=== PATIENT | male | born 1950 | race Caucasian/White ===

== ENCOUNTER 2020-03-05 12:04 | Emergency (ER) | payer OTHER, MEDICAID ==
[~2020-03-05] VITALS: Ht 170.2 cm; Wt 50.8 kg
[2020-03-05 12:04] VITALS: BP 120/79
--- NOTE | 2020-03-05 12:05 | NUR ---
PT BIBA AND TAKEN TO BED 4, PT CHANGED INTO GOWN AND ROOM STRIPPED, PT GAVE URINE SAMPLE PLACED BY BED SIDE CART, PT IN SF POSTION RAILS UP X2
--- NOTE | 2020-03-05 12:30 | NUR ---
69 YEAR OLD MALE BIBA FROM [facility] FOR SAYING HE HAS SUICIDAL IDEATION. PER FACILITY PT HAS NOT EATEN IN 3 DAYS, AND STATES HE SAYS LIFE IS NOT WORTH LIVING. PT STATES HE HAS SUICIDAL IDEATION BECAUSE HE HAS BEEN FEELING LONELY, IS UNSURE WHAT PLAN IS. PT ALERT AND AWAKE, BREATHING EVEN AND UNLABORED, SKIN WARM AND DRY. BED IN LOWEST POSITION, LOCKED, BED RAIL UPX1. PT PLACED INTO ROOM WITH SI PRECAUTIONS, SITTER REMAINS AT BEDSIDE OF PT. PMH - ANXIETY, DEPRESSION, [place] ALLERGIES - NKA
[2020-03-05 12:44] LABS: BASOPHILS # (AUTO) 0.1 K/uL (0.00-0.22); BASOPHILS % (AUTO) 0.7 % (0.0-2.0); EOSINOPHILS # (AUTO) 0.1 K/uL (0-0.4); EOSINOPHILS % (AUTO) 1.4 % (0.0-4.0); HEMATOCRIT 41.3 % (36-52); HEMOGLOBIN 13.8 g/dL (12.0-18.0); LYMPHOCYTES # (AUTO) 1.2 K/uL (2.0-11.5); LYMPHOCYTES % (AUTO) 16.1 % (20.5-51.1); MEAN CORPUSCULAR HEMOGLOBIN 30 pg (27-31); MEAN CORPUSCULAR HGB CONC 33 g/dL (33-37); MEAN CORPUSCULAR VOLUME 89.3 fL (80-94); MONOCYTES # (AUTO) 0.5 K/uL (0.8-1.0); MONOCYTES % (AUTO) 6.1 % (1.7-9.3); NEUTROPHILS # (AUTO) 5.7 K/uL (1.8-7.7); NEUTROPHILS % (AUTO) 75.7 % (42.2-75.2); PLATELET COUNT (AUTO) 205 K/uL (140-450); RED BLOOD CELL COUNT(AUTO) 4.62 MIL/uL (4.20-6.10); RED CELL DISTRIBUTION WIDTH 13.1 % (11.6-13.7); WHITE BLOOD COUNT (AUTO) 7.6 K/uL (4.8-10.8)
--- NOTE | 2020-03-05 12:52 | NUR ---
DR FITZPATRICK AT BED SIDE WITH PT AT BED 4
[2020-03-05 13:00] LABS: ALBUMIN 3.8 g/dL (3.4-5.0); ANION GAP 11.5 (8-16); ASPARTATE AMINOTRANSFERASE 29 U/L (15-37); CARBON DIOXIDE 28.5 mmol/L (21-32); CHLORIDE 107 mmol/L (98-107); CREATININE 0.9 mg/dL (0.6-1.3); GFR ARICAN-AMERICAN 108 mL/min (>90); GLUCOSE 104 mg/dL (74-106); SODIUM SERUM 143 mmol/L (136-145); TOTAL BILIRUBIN 0.4 mg/dL (0.0-1.0); UREA NITROGEN, BLOOD 17 mg/dL (7-18)
[2020-03-05 13:01] LABS: ACETAMINOPHEN < 0.5 ug/ml (10-30); SALICYLATE < 2.8 mg/dL (2.8-20.0)
[2020-03-05 13:05] LABS: APPEARANCE,URINE CLEAR (CLEAR); BILIRUBIN,URINE NEGATIVE (NEGATIVE); BLOOD, URINE TRACE-I (NEGATIVE); COLOR,URINE YELLOW (YELLOW); LEUKOCYTE ESTERASE ,URINE NEGATIVE (NEGATIVE); NITRITE, URINE NEGATIVE (NEGATIVE); UGLUCOSE NEGATIVE (NEGATIVE)
[2020-03-05 13:12] LABS: RBC,URINE 0-5 /HPF (0-5); WBC,URINE 0-5 /HPF (0-5)
--- NOTE | 2020-03-05 14:02 | NUR ---
SPOKE TO DIOR GONZALEZ PT'S NIECE AND POA. UPDATE WAS GIVEN AND ASKED ER DOCTOR TO CALL [facility] PER HER REQUEST AND REQUESTING TO SPEAK WITH PSYCHIATRIST.
[2020-03-05] MEDS ORDERED: clonazePAM 0.5 MG TAB PO ONE (14:05)
--- NOTE | 2020-03-05 14:34 | NUR ---
PT RESTING WITH EYES CLOSED, BREATHING EVEN AND UNLABORED. NO DISTRESS NOTED. SITTER REMAINS AT BEDSIDE, WILL CONTINUE TO MONITOR.
[2020-03-05 14:41] LABS: BARBITURATE, URINE NEGATIVE ng/ml (NEG <=200); BENZODIAZEPINE, URINE NEGATIVE ng/mL (NEG <=200); CANNABINOID, URINE NEGATIVE ng/mL (NEG <=50); COCAINE, URINE NEGATIVE ng/mL (NEG <=300); OPIATE, URINE NEGATIVE ng/mL (NEG <=2000); PHENCYCLIDINE SCREEN,URINE NEGATIVE ng/mL (NEG <=25)
--- NOTE | 2020-03-05 18:51 | NUR ---
PT ALERT AND AWAKE, BREATHING EVEN AND UNLABORED. NO DISTRESS NOTED. SITTER REMAINS AT BEDSIDE, WILL CONTINUE TO MONITOR. PT WITH DINNER TRAY AT BEDSIDE, DOES NOT WANT TO EAT
--- NOTE | 2020-03-05 19:19 | NUR ---
RECEIVED REPORT FROM VIKRAM VIVAR. TRANSFER OF CARE AT THIS TIME.
--- NOTE | 2020-03-05 20:41 | NUR ---
PT AMBULATED TO WITH STEADY GAIT AND BACK TO BED. ALL PT NEEDS MET AT THIS TIME.
--- NOTE | 2020-03-05 21:50 | NUR ---
PT AMBULATED TO WITH STEADY GAIT AND BACK TO BED. ALL PT NEEDS MET AT THIS TIME.
--- NOTE | 2020-03-05 23:50 | NUR ---
PT IN BED, IN STABLE CONDITION. EQUAL RISE AND FALL OF CHEST WALL. ALL PT NEEDS MET AT THIS TIME.
--- NOTE | 2020-03-06 00:15 | NUR ---
Tello bynum in EDM - 03/06/20 at 0342 by [facility] PT STATED HE FEELS A LITTLE BETTER AFTER ATIVAN WAS GIVEN IM. PT IN BED LOCKED IN LOWEST POSITION, SIDE RAILS X1.
--- NOTE | 2020-03-06 00:25 | NUR ---
PT STATED HE FEELS RESTLESS. ERMD MADE AWARE.
[2020-03-06] MEDS ORDERED: LORazepam 2 MG/ML VIAL IM ONE (00:30)
--- NOTE | 2020-03-06 00:45 | NUR ---
PT STATED HE FEELS A LITTLE BETTER AFTER ATIVAN WAS GIVEN IM. PT IN BED LOCKED IN LOWEST POSITION, SIDE RAILS X1.
--- NOTE | 2020-03-06 02:49 | NUR ---
PT AMBULATED TO WITH STEADY GAIT AND BACK TO BED. ALL PT'S NEEDS MET AT THIS TIME. BED LOCKED IN LOWEST POSITION, SIDE RAILS X1.
--- NOTE | 2020-03-06 05:42 | NUR ---
PT IN STABLE CONDITION. EQUAL RISE AND FALL OF CHEST WALL. BED LOCKED IN LOWEST POSITION, SIDE RAILS X2.
--- NOTE | 2020-03-06 05:46 | NUR ---
Packet received for placement Faxed to [facility]
--- NOTE | 2020-03-06 07:00 | NUR ---
PT IS SLEEPING. EQUAL RISE AND FALL OF CHEST WALL. BED LOCKED IN LOWEST POSITION. SIDE RAILS X2. ALL PT NEEDS MET AT THIS TIME.
--- NOTE | 2020-03-06 07:31 | NUR ---
Pt is sleeping in [facility], will continue to monitor.
--- NOTE | 2020-03-06 07:31 | NUR ---
REPORT RECEIVED FROM VIKARM MOSER. TRANSFER OF CARE AT THIS TIME.
--- NOTE | 2020-03-06 07:49 | NUR ---
REPORT GIVEN TO VIKRAM HERRING. TRANSFER OF CARE AT THIS TIME.
--- NOTE | 2020-03-06 08:58 | NUR ---
Received report. [facility] working on placement at this time.
--- NOTE | 2020-03-06 10:52 | NUR ---
Gave report to [facility] for transport to [facility] room 56A. Dr. Frias accepting.
--- NOTE | 2020-03-06 10:53 | NUR ---
[facility] at bedside for transfer.
[2020-03-06 11:00] VITALS: BP 118/74
== END 2020-03-06 10:53 ==
LOC: MED 12:04
DX: R45.851 Suicidal ideations (principal); F32.9 Major depressive disorder, single episode, unspecified; G10 Huntington's disease
CPT/HCPCS: 80053; 80305; 81001; 85025; 87426; 93005; 96372; 99285; G0480; G0482; J2060; U0003